=== PATIENT | female | born 1990 | race Caucasian/White ===

== ENCOUNTER 2024-02-07 11:47 | Outpatient (CLI) | payer BC ==
--- NOTE | 2024-02-07 12:27 | XRAY Report ---
PROCEDURE: Foot 3+V LT INDICATIONS: LEFT PLANTAR FASCIITIS TECHNIQUE: 3 views of the foot were acquired. COMPARISON: None. FINDINGS: Bones: No fractures or dislocations. No suspicious bony lesions. There is a calcaneal heel spur at insertion of the plantar fascia. Soft tissues: No tibiotalar joint effusion. Achilles tendon appears normal. IMPRESSION: 1. No evidence for acute osseous abnormality involving the patient's left ankle. 2. Calcaneal heel spur. Reviewed by: Efra Sosa MD on 02/07/2024 12:25 PM PDT Approved by: Efra Sosa MD on 02/07/2024 12:25 PM PDT Station ID: [id number]
== END 2024-02-07 11:48 | disposition home or self-care (01) ==
LOC: DI 11:47
PROVIDERS: ATTEND Physician Assistant
DX: M72.2 Plantar fascial fibromatosis (principal); M77.32 Calcaneal spur, left foot